=== PATIENT | female | born 1945 | race Caucasian/White ===

== ENCOUNTER 2016-11-09 | Outpatient (CLI) | payer BC | END 2016-11-09 13:10 | disposition home or self-care (01) ==

== ENCOUNTER 2017-01-25 14:17 | Outpatient (CLI) | payer BC | END 2017-01-25 14:18 | disposition home or self-care (01) | DX: Z51.5 Encounter for palliative care (principal); K59.00 Constipation, unspecified; R63.0 Anorexia; F43.21 Adjustment disorder with depressed mood; R53.83 Other fatigue; C56.9 Malignant neoplasm of unspecified ovary; G35 Multiple sclerosis; Z66 Do not resuscitate ==

== ENCOUNTER 2017-06-25 08:00 | Outpatient (CLI) | payer BC | END 2017-06-25 08:01 | disposition home or self-care (01) | LOC: LAB.R 08:00 | PROVIDERS: ATTEND Family Medicine | DX: N39.0 Urinary tract infection, site not specified (principal) | CPT/HCPCS: 87086 ==

== ENCOUNTER 2017-08-05 09:06 | Outpatient (CLI) | payer BC ==
[2017-08-05 10:06] LABS: HEMOGLOBIN A1C 1.1 g/dL
== END 2017-08-05 09:07 | disposition home or self-care (01) ==
LOC: LAB 09:06
PROVIDERS: ATTEND Family Medicine
DX: E11.40 Type 2 diabetes mellitus with diabetic neuropathy, unspecified (principal)
CPT/HCPCS: 83036

== ENCOUNTER 2017-09-19 10:15 | Outpatient (CLI) | payer BC | END 2017-09-19 10:16 | disposition home or self-care (01) | LOC: LAB.WCP 10:15 | PROVIDERS: ATTEND Family Medicine | DX: N39.0 Urinary tract infection, site not specified (principal) | CPT/HCPCS: 87077; 87086 ==